=== PATIENT | female | born 1980 | race Caucasian/White ===

== ENCOUNTER 2016-11-30 05:20 | Emergency (ER) | payer SELFPAY ==
--- NOTE | ~2016-11-30 | CR63 ---
[facility] A Service of [facility] RADIOLOGY TEXT RESULTS PATIENT: KENYON MOONEY LOCATION: [facility] : 82 UNIT #: [id number] AGE: [address]: Roland Schuler MD SEX: F ORDER DR: [id number] [facility] [address]. [place], [place] [address] [id number] E MR#: [id number] Acc #: [id number] NAME: KENYON MOONEY : 1980 SEX: F STUDY DATE/TIME: 11/30/2016 6:53 UNIT: [facility] ROOM: STUDY DESCRIPTION: CR Chest 2 View Attending Physician: Roland Schuler M.D. Ordering Physician: Kirby Schulte Aprn Primary Care Physician: No Primary Care Physician MEDICAL IMAGING REPORT This report is preliminary unless electronic signature is present EXAM Chest, PA and lateral, 11/30/2016. HISTORY Cough and shortness of breath for 2 days. FINDINGS PA and lateral examination of the chest upright shows a good expansion of the parenchyma with a normal distribution of the pulmonary vascularity. There is no indication of congestion, effusion, infiltrate, tumor, or nodular density. The pleural reflections and diaphragmatic contours are normal. The cardiac silhouette and mediastinal anatomy is within normal limits. IMPRESSION Normal chest. Dictated by... Connor Tay M.D. THIS IS AN ELECTRONICALLY VERIFIED REPORT Connor Tay M.D. at 12/01/2016 2:24 PM KRT/tobias TD: 11/30/2016 11:13 JOB #: [id number] MEDICAL IMAGING REPORT COPY
--- NOTE | ~2016-11-30 | CT16 ---
[facility] A Service of [facility] RADIOLOGY TEXT RESULTS PATIENT: KENYON MOONEY LOCATION: [facility] : 82 UNIT #: [id number] AGE: [address]: Roland Schuler MD SEX: F ORDER DR: [id number] [facility] [address] [place], [place] [address] [id number] E MR#: [id number] Acc #: [id number] NAME: KENYON MOONEY : 1980 SEX: F STUDY DATE/TIME: 11/30/2016 7:48 UNIT: [facility] ROOM: STUDY DESCRIPTION: CT Angio Chest for PE Attending Physician: Roland Schuler M.D. Ordering Physician: Kirby Schulte Aprn Primary Care Physician: No Primary Care Physician MEDICAL IMAGING REPORT This report is preliminary unless electronic signature is present EXAM CT angiography of chest for PE. HISTORY D-dimer 680 at 06:36, cough, right chest pain 2 days, depression. TECHNIQUE CT of the chest performed for CT pulmonary angiography with intravenous administration 80 mL Isovue-370. This CT exam was performed with one or more of the following radiation dose reduction techniques: automatic exposure control, adjustment of mA and/or kV according to patient size, and iterative reconstruction. COMPARISON No prior chest CT for comparison. There are limited views of lower thorax from CT abdomen and pelvis dated 11/11/2016. FINDINGS 3-dimensional reconstructions performed through the pulmonary arteries. No adenopathy. Heart normal in size. No pleural effusions. Visualized portions of liver, spleen, pancreas, adrenal glands, left upper renal pole unremarkable. Patient appears to be status post cholecystectomy. Esophagus, stomach, visualized small bowel and colon unremarkable. Lungs show a 2 mm noncalcified nodule in the right lower lobe. Lungs otherwise unremarkable. Pulmonary arteries are well opacified. No PE. No evidence of aortic aneurysm or dissection. The visualized aortic branch vessels are patent. Bony structures unremarkable. IMPRESSION 1. No PE. [facility] A Service of [facility] RADIOLOGY TEXT RESULTS PATIENT: KENYON MOONEY [id number] 82 UNIT #: [id number] AGE: [address]: Roland Schuler MD SEX: F ORDER DR: 2. No evidence of aortic aneurysm or dissection. The visualized aortic branch vessels are patent. 3. No acute pulmonary disease. 4. 2 mm noncalcified nodule right lower lobe (image 90). In absence of prior studies demonstrating prolonged stability, 12-month CT followup recommended. 5. Patient appears to be status post cholecystectomy. No acute-appearing abnormality in the upper abdomen. Dictated by... Godfrey Cruz M.D. THIS IS AN ELECTRONICALLY VERIFIED REPORT Godfrey Cruz M.D. at 11/30/2016 5:41 PM Ham TD: 11/30/2016 12:41 JOB #: [id number] MEDICAL IMAGING REPORT COPY
[~2016-11-30 05:20] MED LIST: NO MEDICATIONS; VICODIN
[2016-11-30 05:33] LABS: BASOPHIL# 0.1 X10e3 (0-0.3); BASOPHIL% 0.9 % (0-2.5); EOSINOPHIL# 0.3 X10e3 (0-0.7); EOSINOPHIL% 2.7 % (0.0-7.0); HEMATOCRIT 41.1 % (35.0-45.0); HEMOGLOBIN 13.6 gm/dL (12.0-16.0); LYMPHOCYTE% 32.2 % (17.0-45.0); MEAN CELL VOLUME 102.3 FL (83-96); MEAN CORPUSCULAR HEMOGLOBIN 33.8 PG (28-34); MEAN PLATELET VOLUME 7.6 FL (6.5-11.5); MONOCYTE# 0.7 X10e3 (0-1.0); NEUTROPHIL# 5.3 X10e3 (1.5-7.1); NEUTROPHIL% 56.2 % (40-75); PLATELET COUNT 392 X10e3 (140-420); RED BLOOD COUNT 4.01 X10e (3.90-5.30); RED CELL DISTRIBUTION WIDTH 15.2 % (11.0-15.5); WHITE BLOOD COUNT 9.4 X10e3 (4.0-10.5)
[2016-11-30 05:36] LABS: DIFF IND NO
[2016-11-30 06:02] LABS: ALBUMIN SERUM 3.6 g/dL (3.5-5.0); ALKALINE PHOSPHATASE 90 U/L (32-92); ALT (SGPT) 33 U/L (10-40); AST (SGOT) 55 U/L (10-42); BILIRUBIN, DIRECT 0.3 mg/dL (0.0-0.2); BILIRUBIN,INDIRECT 0.3 mg/dL (0.0-0.9); BILIRUBIN,TOTAL 0.6 mg/dL (0.2-2.0); BLOOD UREA NITROGEN 6 mg/dL (9-23); CALCIUM SERUM 8.7 mg/dL (8.4-10.2); CARBON DIOXIDE 24 mmol/L (22-31); CHLORIDE 104 mmol/L (100-111); CREATININE SERUM 0.8 mg/dL (0.6-1.4); GLOM FILT RATE Estimated ABOVE60 mL/min (>60); GLUCOSE FASTING 94 mg/dL (70-110); LIPASE 57 U/L (22-51); POTASSIUM 3.6 mmol/L (3.5-5.1); PROTEIN TOTAL SERUM 7.3 g/dL (6.0-8.3); SODIUM 137 mmol/L (135-145)
== END 2016-11-30 10:10 | disposition home or self-care (01) ==
LOC: CED 05:20
PROVIDERS: Nurse Practitioner Family
DX: B34.9 Viral infection, unspecified (principal); F32.9 Major depressive disorder, single episode, unspecified; Z90.49 Acquired absence of other specified parts of digestive tract; Z98.51 Tubal ligation status
CPT/HCPCS: 36415; 71020; 71275; 80048; 80076; 83690; 84703; 85025; 85379; 96374; 99284; J1885; Q9967